=== PATIENT | female | born 1995 | race Caucasian/White ===

== ENCOUNTER 2020-12-11 21:37 | Outpatient (CLI) | payer OTHER | END 2020-12-11 23:52 | disposition home or self-care (01) | LOC: GENOP 21:37 | DX: O36.8330 Maternal care for abnormalities of the fetal heart rate or rhythm, third trimester, not applicable or unspecified (principal); O14.93 Unspecified pre-eclampsia, third trimester; Z3A.36 36 weeks gestation of pregnancy | CPT/HCPCS: 59025; 81001; 87210; G0463 ==